=== PATIENT | female | born 1965 | race Caucasian/White ===

== ENCOUNTER → 2020-09-24 14:02 | Outpatient (REF) | payer MEDICAID, SELFPAY ==
--- NOTE | 2020-09-24 13:30 | ECG_ITS ---
Hook-up date: 2020-09-24 14:25:00 Duration: 47:59:00 Test Indications: PALPITATIONS Medications: [id number] QRS complexes 71 Ventricular ectopics which represent <1 % of total QRS comp. 35 Supraventricular ectopics which represent <1 % of total QRS comp. * Paced QRS complexs which represent % of total QRS comp. VENTRICULAR ECTOPY 71 Isolated 0 Bigeminal Cycles 0 Couplets 0 Runs 0 Beats in Runs * Beats LONGEST at * BPM at :: -- * Beats FASTEST at * BPM at :: -- SUPRAVENTRICULAR ECTOPY 30 Isolated 1 Couplets 1 Runs 3 Beats in Runs 3 Beats LONGEST at 111 BPM at 06:47:36 2020-09-25 3 Beats FASTEST at 111 BPM at 06:47:36 2020-09-25 HEART RATES 47 MIN at 03:46:13 2020-09-25 81 AVG 134 MAX at 14:26:43 2020-09-24 LONGEST RR 1.4720 secs at 03:45:53 2020-09-25 S-T LEVELS Channel 1 - 128 mm at 14:25:00 2020-09-24 - 128 mm at 14:25:00 2020-09-24 Channel 2 - 128 mm at 14:25:00 2020-09-24 - 128 mm at 14:25:00 2020-09-24 Channel 3 - 128 mm at 03:34:41 -- - 128 mm at 03:34:41 Basic rhythm Normal sinus rhythm No long pause or profound bradycardia Rare Premature ventricular complexes Rare Premature atrial complexes Patient reported symptoms correlated with NSR Referred By: Hemanth Friend Overread By: MABEL LINDER MD
== END ==
LOC: HO.CARD 14:02
PROVIDERS: PCP Internal Medicine; Visit Provider Internal Medicine
DX: R00.2 Palpitations (principal)
CPT/HCPCS: 93225; 93226

== ENCOUNTER 2021-04-13 15:06 | Outpatient (REF) | payer MEDICAID, SELFPAY ==
--- NOTE | ~2021-04-13 | MR_ITS ---
EXAMINATION: MR LUMBAR SPINE WITHOUT CONTRAST CLINICAL INFORMATION: 56-year-old with low back pain and bilateral leg pain, worsening. Evaluate for disc herniation, spinal or foraminal stenosis. COMPARISON: 01/30/2020 MRI TECHNIQUE: MRI of the lumbar spine was obtained using routine sequences without contrast. FINDINGS: Coronal Alignment: Normal. Sagittal Alignment: There is 3 to 4 mm of grade 1 spondylolisthesis at L3-L4 which appears slightly improved when compared to the previous study which measured 5 mm. There is trace retrolisthesis at L2-L3, stable in appearance. Lordotic curvature is maintained. Lumbosacral Junction: Transitional anatomy with lowest lumbar-like segment labeled as L5, which is partially sacralized on the right. Vertebral Bodies: Normal height. Bone Marrow: Type I degenerative marrow signal changes seen along the endplates at L4-L5, stable in appearance. Otherwise no significant marrow replacing process or suspicious bone marrow edema. Conus Medullaris: Terminates at L1-L2. Morphology and signal is normal. Intradural Nerve Roots: Within normal limits. There is a tiny filar lipoma at the L3-L4 level, unchanged. L5-S1: Transitional level with a rudimentary intervertebral disc space with no significant canal or neuroforaminal stenosis, stable in appearance. L4-L5: Tcuatnbh-xh-fnofci disc space height loss, disc desiccation, Schmorl's nodes, probable intradiscal vacuum phenomenon and type I degenerative marrow signal changes along the endplates are stable. There is a small central disc herniation with slight caudal migration superimposed on concentric disc bulging with slight flattening of the dural sac, stable in appearance. There is anterolateral spondylosis and mild bilateral facet arthropathy with no significant canal stenosis, unchanged in appearance. There is mild foraminal narrowing bilaterally without neural impingement, unchanged in appearance. L3-L4: Oyoe-yz-dfaeenpg disc space height loss and disc desiccation are stable in appearance. Spondylolisthesis appears less prominent on current study. Diffuse disc bulging is again noted with a superimposed central extruded disc herniation with mild cephalad migration, stable in appearance, with mild flattening of the dural sac, mild ligamentum of flavum thickening and moderate bilateral facet arthropathy, largely unchanged. There is mild central canal stenosis and mild narrowing of the right subarticular zone, largely unchanged. Moderate left-sided and mild right-sided neural foraminal stenosis is stable in appearance, with disc bulging abutting the exiting left L3 nerve root, unchanged. L2-L3: Disc space height and signal are well maintained with trace retrolisthesis, stable in appearance, without disc bulge or herniation. No significant facet arthrosis, canal or neuroforaminal stenosis, unchanged. L1-L2: Disc space height and signal well maintained without significant disc bulge or herniation and no significant spondylosis, facet arthrosis, canal or neural foraminal stenosis. Paraspinal/Retroperitoneal: The paravertebral soft tissues appear unremarkable. MR/MR lumbar spine wo con IMPRESSION: 1. Discogenic degenerative changes at L3-L4 and L4-L5, with L5 being a transitional level, stable in appearance. Grade 1 spondylolisthesis at L3-L4 appears less prominent on current study. 2. 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 Mild bilateral neural foraminal narrowing at L4-L5 is stable. 3. Degenerative endplate changes at L4-L5 are stable.
== END 2021-04-13 15:07 | disposition home or self-care (01) ==
LOC: HO.MRI 15:06
PROVIDERS: PCP Internal Medicine; Visit Provider Physical Medicine & Rehabilitation
DX: M48.00 Spinal stenosis, site unspecified (principal)
CPT/HCPCS: 72148

== ENCOUNTER 2021-08-11 13:32 | Outpatient (REF) | payer MEDICAID, SELFPAY ==
--- NOTE | ~2021-08-11 | MM_ITS ---
EXAMINATION: MM SCREENING DIGITAL BREAST TOMOSYNTHESIS, BILATERAL CLINICAL INFORMATION: Screening. Asymptomatic. The lifetime risk of breast cancer based on the Tyrer-Cuzick Model is 7%. COMPARISON: Mammography: 12/04/2019, outside exam 01/15/2009 ([place]). TECHNIQUE: Digital breast tomosynthesis is performed in both the craniocaudal and mediolateral oblique views along with computer-aided detection (CAD). Synthesized 2D images are generated from the tomosynthesis. FINDINGS: There are scattered areas of fibroglandular density (ACR BI-RADS breast composition Category b). There are no significant masses, abnormal calcifications, or other abnormalities. MM/MM tomosynthesis screening BI IMPRESSION: No mammographic evidence of malignancy. ASSESSMENT: BI-RADS 1: Negative RECOMMENDATION: Routine annual mammography screening. This patient's information was entered into a reminder system with a target due date for their next mammogram.
--- NOTE | 2021-08-11 14:00 | CA_ITS ---
INDICATIONS: SHORTNESS OF BREATH HT: 5'1 WT: 180 BSA: 1.81 m^2 BP: 128/82 STUDY QUALITY: ECG RHYTHM: CONCLUSIONS: FINDINGS: M-MODE/2D MEASUREMENTS: LVd: 3.87cm LVs: 2.37 cm IVSd: 0.9 cm IVSs: LVPWd: 0.9 cm LVPWs: ASC AORTA: 3.4 cm RVd: 2.32 cm AO root: 1 LA: 2.2 cm AV Cusp: LVOT: 1.9 cm EF% 65% TAPSE: 2.07 cm OTHER: EFFUSION: THROMBUS: WALL MOTION: RVSP: 24 mmHg Mitral E/A : 55.1 cm/s / 60.1 cm/s = 0.9 E MED 5.87 cm/s E Lat. 12.3 cm/s AV Cusps Trileaflet: DOPPLER MEASUREMENTS: AORTIC PPG 1 mmHg MFG 4 mmHg Velocity 103 m/s TRICUSPID MFG 21 VELOCITY 228 RA Vol. IVC: LA Vol. 16.3 ml/m^2 MTDD
--- NOTE | 2021-08-11 14:00 | CA_ITS ---
Transthoracic Echocardiogram Patient (Last, First, Middle): Paola Jacobs T Gender: Female Date of : 1965 Age: 56 Procedure Date: 08/11/2021 Procedure Type: Transthoracic Echocardiogram Location: OP Height: 154.94 cm Weight: 81.65 kg BSA: 1.81 m2 Heart Rate: bpm BP: 128 / 82 mmHg [employer]ile [employer] Preflight: LUKE Referring MD: Hemanth Gonzalez MD Symptoms: R06.02 SOB Study Quality: Fair ECG Rhythm: Sinus Conclusions: - The left ventricular systolic function is normal. The calculated ejection fraction is 67% by biplane method. - No obvious valvular pathology seen on this study. Findings Left Ventricle Normal left ventricular cavity size. There is normal left ventricular wall thickness. The left ventricular systolic function is normal. The calculated ejection fraction is 67% by biplane method. There is no evidence of regional wall motion abnormalities. Diastolic function is normal for age. Right Ventricle Normal right ventricular cavity size and systolic function. Atria Both atria are normal in size. Aortic Valve There is a normal trileaflet aortic valve. There is no aortic valve stenosis. There is no aortic valve regurgitation. Mitral Valve The mitral valve appears normal. There is no mitral valve regurgitation. There is no mitral valve stenosis. Pulmonic Valve The pulmonic valve was not well visualized. Tricuspid Valve Normal tricuspid valve structure. There is trace tricuspid valve regurgitation. The pulmonary artery systolic pressure is normal. Great Vessels The aortic annulus, sinuses of valsalva, and asc aorta are normal in size. Venous The inferior vena cava was not well visualized. The inferior vena cava is normal in size. Pericardium/Pleural There is no evidence of pericardial effusion. Prior Study Comparison No prior study available for comparison. Recommendations, Care & Conclusions No obvious valvular pathology seen on this study. Measurements 2D Linear Measurements IVSd: 0.99 0.6-0.9/0.6-1.0 cm LVIDd: 3.87 3.9-5.3/4.2-5.9 cm LVIDd Index: 2.14 2.4-3.2/2.2-3.1 cm/m2 LVIDs: 2.37 2.0-3.6 cm LVPWd: 0.99 0.7-1.1 cm LA Diam: 2.20 2.7-3.8/3.0-4.0 cm LAIDs Index: 1.22 1.5-2.3 cm/m2 LV Mass: 147.61 67-162/88-224 g LV Mass Index: 81.55 43-95/49-115 g/m2 LVOT Diam: 1.90 3.0+(-)1.3 cm 2D Systolic Function EF 4C: 75.20 >55% EF 2C: 57.00 >55% EF BiP: 67.10 >55% Mitral Valve MV Pk E: 0.55 MV PK A: 0.60 MV Decel Time: 116.00 E/A: 0.90 E'Lateral: 12.30 E'Medial: 5.87 E/E' Med: 9.40 E/E' Lat: 4.50 PHT: 34.00 MVA PHT: 6.47 Decel Braxton: 4.74 Aortic Valve AoV Pk David: 1.03 AoV Pk Grad: 4.00 LVOT LVOT Pk David: 0.83 LVOT Mn David: 0.55 LVOT VTI: 0.15 LVOT Pk Grad: 3.00 LVOT Mn Grad: 1.00 LVOT Diam: 1.90 LVOT Area: 2.84 Diastolic Function MV Pk E: 0.55 MV Pk A: 0.60 E/A: 0.90 E'Medial: 5.87 E/E' Med: 9.40 E' Laterial: 12.30 E/E' Lat: 4.50 Right Ventricle TAPSE (mm): 2.07 Tricuspid Valve TR Pk David: 2.28 TR Pk Grad: 21.00 RA Press: 3.00 RVSP: 24.00 Great Vessels Aorta Ao Asc: 3.40 2.1-3.4 cm Updated in Other Vendor System with Status of Final Andreas Ma MD electronically signed on 08/17/2021 11:34:12 AM with status of Final
== END 2021-08-11 13:33 | disposition home or self-care (01) ==
LOC: HO.MAMMO 13:32
PROVIDERS: Visit Provider Internal Medicine
DX: Z12.31 Encounter for screening mammogram for malignant neoplasm of breast (principal); R06.02 Shortness of breath
CPT/HCPCS: 77063; 77067; 93306

== ENCOUNTER 2024-07-16 13:32 | Outpatient (REF) | payer OTHER, SELFPAY ==
[2024-07-16 15:03] LABS: Creatinine Urine 218.99 mg/dL; Microalbum/Creatinine Ratio Ur 5.4 ug/mg cr (<30)
[2024-07-16 15:04] LABS: Anion Gap 13 (12-20); Blood Urea Nitrogen 9 mg/dL (9-16); Calcium 9.4 mg/dL (8.4-10.2); Carbon Dioxide 23 mmol/L (22-29); Chloride 107 mmol/L (96-108); Cholesterol 293 mg/dL (<200); Estimated Glomerular Filt Rate > 60; Glucose Random 90 mg/dL (60-115); HDL Cholesterol 49 mg/dL (>40); LDL Cholesterol Calculated 218 mg/dL (<100); Potassium 3.4 mmol/L (3.3-5.1); Sodium 140 mmol/L (135-145); Triglycerides 133 mg/dL (<150)
== END 2024-07-16 13:33 | disposition home or self-care (01) ==
LOC: HO.CHCLDS 13:32
PROVIDERS: Visit Provider Nurse Practitioner
DX: E11.9 Type 2 diabetes mellitus without complications (principal)
CPT/HCPCS: 36415; 80048; 80061; 82043; 82570